=== PATIENT | male | born 1960 | race Caucasian/White ===

== ENCOUNTER 2022-12-11 08:50 | Outpatient (CLI) | payer OTHER, SELFPAY ==
[2022-12-11 13:01] LABS: Albumin* 4.5 g/dL (3.3-5.0); Chloride* 102 mmol/L (96-114)
[2022-12-11 13:02] LABS: Potassium* 4.3 mmol/L (3.6-5.1); Sodium* 139 mmol/L (135-149)
[2022-12-11 13:04] LABS: Carbon Dioxide* 31 mmol/L (20-32); Cholesterol* 151 mg/dL (90-199); Creatinine* 0.9 mg/dL (0.5-1.5); Estimated Glomerular Filt Rate 97 ml/min
[2022-12-11 13:05] LABS: Alanine Aminotransferase* 23 U/L (4-50); Alkaline Phosphatase* 49 U/L (40-150); Aspartate Amino Transferase* 27 U/L (12-35); Blood Urea Nitrogen* 16 mg/dL (7-30); Calcium* 9.5 mg/dL (8.4-10.6); Glucose* 91 mg/dL (60-115); HDL Cholesterol* 45 mg/dL (>=40); LDL Cholesterol Calculated 86 mg/dL (<100); Total Protein* 7.1 g/dL (6.0-8.3); Triglycerides* 100 mg/dL (40-149)
[2022-12-12 21:49] LABS: Prostate Specific Antigen Free 0.6 ng/mL; Prostate Specific Antigen%Free 38 %; Prostate Specific AntigenTotal 1.6 ng/mL (0.0-4.0)
== END 2022-12-11 08:51 | disposition home or self-care (01) ==
PROVIDERS: PCP Family Medicine; Visit Provider Family Medicine
DX: Z00.00 Encounter for general adult medical examination without abnormal findings (principal); E03.8 Other specified hypothyroidism; E78.5 Hyperlipidemia, unspecified; R00.2 Palpitations; R53.83 Other fatigue; N40.0 Benign prostatic hyperplasia without lower urinary tract symptoms
CPT/HCPCS: 80053; 80061; 84153; 84154; 84443

== ENCOUNTER 2022-12-26 07:15 | Outpatient (CLI) | payer OTHER, SELFPAY ==
--- NOTE | 2022-12-26 07:15 | CRLHL7_ITS ---
For Patients: As a result of the Century Cures Act, medical imaging exams and procedure reports are released immediately into your electronic medical record. You may view this report before your referring provider. If you have questions, please contact your health care provider. INDICATION: left wrist swelling. hx subclavian DVT 2015 COMPARISON: None. TECHNIQUE: Left upper extremity and neck venous ultrasound performed as well as ultrasound of right internal jugular vein including devries scale/2D, color Doppler, and spectral Doppler imaging including spectral waveform analysis. FINDINGS: The internal jugular, innominate, subclavian, axillary, basilic, cephalic, and brachial veins were patent and negative for thrombus. Hypoechoic noncompressible thrombus present within the distal left radial vein, corresponding to the area swelling. The ulnar vein is compressible. IMPRESSION: DVT within the distal left radial vein. Dictated by Felix Pittman MD @ 12/26/2022 10:19:11 AM (Electronically Signed)
== END 2022-12-26 07:16 | disposition home or self-care (01) ==
LOC: US 07:17
PROVIDERS: PCP Family Medicine; Visit Provider Family Medicine
DX: R22.32 Localized swelling, mass and lump, left upper limb (principal); I82.621 Acute embolism and thrombosis of deep veins of right upper extremity; I82.B12 Acute embolism and thrombosis of left subclavian vein
CPT/HCPCS: 93971

== ENCOUNTER 2024-02-18 08:27 | Outpatient (CLI) | payer OTHER, SELFPAY | END 2024-02-18 08:28 | disposition home or self-care (01) | PROVIDERS: PCP Family Medicine; Visit Provider Family Medicine | DX: E78.5 Hyperlipidemia, unspecified (principal); N40.0 Benign prostatic hyperplasia without lower urinary tract symptoms; Z12.5 Encounter for screening for malignant neoplasm of prostate; Z13.228 Encounter for screening for other metabolic disorders | CPT/HCPCS: 80053; 80061; G0103 ==

== ENCOUNTER 2024-06-10 07:50 | Outpatient (CLI) | payer OTHER, SELFPAY | END 2024-06-10 07:51 | disposition home or self-care (01) | LOC: FRMREF 07:51 | PROVIDERS: PCP Family Medicine; Visit Provider Family Medicine | DX: I82.409 Acute embolism and thrombosis of unspecified deep veins of unspecified lower extremity (principal); Z86.718 Personal history of other venous thrombosis and embolism | CPT/HCPCS: 81240; 81241; 85300; 85303; 85306; 85730; 86147 ==

== ENCOUNTER 2024-12-09 06:12 | Day surgery (SDC) | payer OTHER, SELFPAY ==
[2024-12-09] VITALS (12 sets, daily range): BP systolic 94–152; BP diastolic 64–104; PULSE 53–65; RESP 16; TEMP 36.5–36.9; O2SAT 94–100; BMI 25.3
--- OUTSIDE RECORDS SUMMARY | 2024-12-09 06:14 | XMS_ITS | Clinical Summary ---
Author Organization [id number] Address [place], [place] [address] Care Team Providers Care Speech Language Pathology Assistant Name Role Phone Kike Montilla MD Primary Care Provider [phone] Allergies Active Allergy Reactions Criticality Noted Date Comments Sulfa (Sulfonamide Antibiotics) 09/11 Medications ASPIRIN 81 MG TAB take 1 tablet (81mg) by oral route once daily Active IBUPROFEN 200 MG TAB take 2 tablet (400 mg) by oral route every 6 hours as needed with food Active PRILOSEC 20 MG CAP take 1 capsule (20 mg) by oral route once daily before a meal Active CRUTCH as directed 1 pair 0 10/02/2009 Active ibuprofen (ADVIL; MOTRIN) 600 mg tablet Take 1 tablet by mouth every 6 hours if needed for Pain. Maximum of 3200 mg in 24 hours. 30 tablet 0 02/26/2010 Active rosuvastatin (CRESTOR) 10 mg tablet Take 1 tablet by mouth at bedtime. 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 Gender Identity Not on file Sexual Orientation Not on file Obstetrics History Last Filed Vital Signs Vital Sign Reading Time Taken Comments Blood Pressure 130/78 02/26/2010 6:10 PM CDT Pulse 64 02/26/2010 6:10 PM CDT Temperature 36.2 C (97.2 F) 02/26/2010 4:00 PM CDT Respiratory Rate 16 02/26/2010 6:10 PM CDT Oxygen Saturation 98% 02/26/2010 6:10 PM CDT Inhaled Oxygen Concentration - - Weight 76.4 kg (168 lb 6.9 oz) 02/26/2010 12:00 PM CDT Height 182.9 cm (6') 02/26/2010 12:00 PM CDT Body Mass Index 22.84 02/26/2010 12:00 PM CDT Plan of Treatment Health Maintenance Due Date Last Done Comments Tdap 1972 Depression screening for age 12+ 1973 HIV for age 15-65 1976 BMI (ht and wt on same day) for age 18+ 1979 Hepatitis C screening for ag e 18-79 1979 Tetanus booster 1981 Colonoscopy through age 75 2006 Lipids for age 45-75 2006 Pneumococcal series for age 50+ (1 of 1 - PCV) 2011 Zoster (shingles) series for age 50+ (1 of 2) 2011 COVID-19 vaccine series (1 - 2023- season) 2024 Influenza for age 50-64 07/11/2024 RSV vaccine for adults or (1 - 1-dose 75+ series) 2036 Pneumococcal series for age 6-49 Aged Out No longer eligible based on patient's age to complete this topic Insurance [facility] Advance Directives * Full Code (Latest Code Status on File) Date Activated Date Inactivated Comments 02/26/2010 12:25 PM 02/26/2010 8:29 PM * Full Code Date Activated Date Inactivated Comments 10/02/2009 1:53 PM 10/02/2009 7:58 PM Care Teams Speech Language Pathology Assistant Relationship Specialty Start Date End Date Kike Montilla MD [address] [place] [address] PCP - General Family Practice 10/04/19
--- OUTSIDE RECORDS SUMMARY | 2024-12-09 06:15 | XMS_ITS | Continuity of Care Document ---
Author Organization [facility] Address [address] [address] [place] [address] Phone Care Team Providers Care Supervisor Incising Name Role Phone Unavailable Unavailable Unavailable Allergies, [...] Procedures Procedure Date Colonoscopy Flex; W/remov Les- 22 Colonoscopy W/Submucosal Injection Colonoscopy Flex; W/bx 1/mx Level Iv-surg Path Gross/micro Advance Directives Directive Yes / No Effective Date File Name No Information Encounters Encounter Description Practice Location Reason(s) For Visit Diagnoses Date Provider Providers Copied on Encounter [facility], [address] [address], [place], [id number], tel:[phone] Breezy [facility] No Information No Information Referring Provider: Jaquelin Mtz MD, [address] [facility] [address], [place], [address] . tel:[phone] [facility], [address] [address], [place], [id number], [place] tel:[phone] [facility] GI Symptoms or Concerns (chief complaint) Screening ColonoscopyPolyp of colon, unspecified part of colon, unspecified typeAVM (arteriovenous malformation) of colonBenign neoplasm of ascending colonBenign neoplasm of transverse colonEncounter for screening for malignant neoplasm of colonAngiodyspla sabiha of colon without hemorrhage 2 Bibi Harris. [address], [id number], [place]. tel:[phone] [facility], [address] [address], [place], [place], [id number], [place] tel:[phone] [facility] No Information 2 Loly Demarco. [address] [facility], [facility] [address], [place], [id number], [place]. tel:[phone] Family History Family Member Type Diagnosis Age [...] Registry Payers Payer name Insurance type Covered green party ID Authoriza timaribel(s) R CI [id number] Social History Type Description Quantity Date Captured [...]
--- OUTSIDE RECORDS SUMMARY | 2024-12-09 06:15 | XMS_ITS | Clinical Summary ---
[facility] Address [address] [place] [address] Care Team Providers Care Operations Chief Name Role Phone Clinician, Not Found MD Primary Care Provider Un available Source Comments You are receiving this document as you are listed as the primary care provider,follow-up provider, or the patient has been referred to you for consultation.This is in compliance with the Medicare and[facility] EHR Incentive Program,which states Providers who transition their patient to another setting of careor provider of care or refers their patient to another provider of care shouldprovide summary care record for each transition of care or referral. [facility] Allergies No known active allergies Medications Medication Sig Dispensed Refills Start Date End Date Status omeprazole (PRILOSEC-OTC) 20 MG tablet Take by mouth Every 24 hours. 03/19/2022 Active Social History Tobacco Use Types Packs/Day Years Used Date Smoking Tobacco: Never Assessed Sex and Gender Information Value Date Recorded Sex Assigned at Not on file Gender Identity Not on file Sexual Orientation Not on file Last Filed Vital Signs Vital Sign Reading Time Taken Comments Blood Pressure - - Pulse - - Temperature 36.6 C (97.8 F) 07/11/2022 11:55 AM CDT Respiratory Rate - - Oxygen Saturation - - Inhaled Oxygen Concentration - - Weight 81.6 kg (180 lb) 07/11/2022 11:55 AM CDT Height 182.9 cm (6') 07/11/2022 11:55 AM CDT Body Mass Index 24.41 07/11/2022 11:55 AM CDT Plan of Treatment Health Maintenance Due Date Last Done Comments Colon Cancer Screening Plan Due 1961 Hep C Screening (Preventive Services) 1961 PSA Screening Discussion 1961 HIV Screening (Preventive Services) 1977 Adult Preventive Visit 1979 Cholesterol 1996 COVID-19 Vaccine ( season) 2024 05/15/2021, 03/09/2021 Influenza (#1) 2024 10/25/2019, 09/11, 11/18/2017, Additional history exists DTaP/Tdap/Td (3 - Tdap) 01/07/2032 01/07/2022, 10/11 RSV (1 - 1-dose 75+ series) 2036 Zoster/Shingles Completed 03/19/2019, 12/27/2018 HepA Aged Out No longer eligi ble based on patient's age to complete this topic HepB Aged Out No longer eligi ble based on patient's age to complete this topic Hib Aged Out No longer eligi ble based on patient's age to complete this topic IPV (Polio) Aged Out No longer eligi ble based on patient's age to complete this topic MCV4 Aged Out No longer eligi ble based on patient's age to complete this topic Pneumococcal Aged Out No longer eligi ble based on patient's age to complete this topic Care Teams Operations Chief Relationship Specialty Start Date End Date Clinician, Not Found, [place] [address] PCP - General 07/11/22
--- OUTSIDE RECORDS SUMMARY | 2024-12-09 06:15 | XMS_ITS | Referral Summary ---
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 [address] [place] [address] PCP - General Family Practice 11/26/18 [facility] [address] [place] [address] Family Practice 11/26/18
--- OUTSIDE RECORDS SUMMARY | 2024-12-09 06:15 | XMS_ITS | Clinical Summary ---
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
[2024-12-09] MEDS: SODIUM CHLORIDE 0.9 % (FLUSH) 10 ML SYRINGE IVF (07:01)
[2024-12-09] MEDS: HEPARIN 5,000 UNIT/0.5 ML INJ 5000 UNIT SUBCUT (07:22)
--- NOTE | 2024-12-09 07:24 | SUR.PREOP ---
Double checked Heparin with ELENI Hernandez prior to her administration.
--- NOTE | 2024-12-09 07:29 | W.PM.H&PU ---
History & Physical Update History & Physical Update H&P Reviewed and patient assessed: The following changes are noted below H&P Updates: Since seeing patient in clinic, he has had hypercoagulable workup that did not reveal increase risk of bleeding. Given his history subclavian vein clot, will plan on prophylactic heparin perioperatively.
[2024-12-09] MEDS: 0.9 % SODIUM CHLORIDE 500 ML 500 ML 100 ML IV (07:30)
--- NOTE | 2024-12-09 07:32 | PM.GSPRC ---
Operative Note Date of procedure: 12/09/24 Pre-op diagnosis: Right inguinal hernia Post-op diagnosis: Same Type of Procedure: Laparoscopic repair right inguinal hernia Procedure Description: After discussing the risks and benefits of the procedure, the patient signed informed consent.? The operative site was marked and the patient was brought to the operating room and placed on the operating table in supine position.? Care was taken to pad the patient's pressure points.?? The patient was then intubated by anesthesia.?? The operative site was then prepped and draped in the usual sterile fashion.? A time-out was then performed. A curvilinear incision was made below the umbilicus. Dissection was carried down to subcutaneous tissue until the anterior rectus fascia was encountered. There was noted to be an umbilical hernia. This was containing preperitoneal fat. This was reduced and the fascial defect was palpable. The anterior rectus fascia was incised off the midline on the right. The rectus muscle fibers were then retracted exposing the posterior fascia. A port with a dissecting balloon was then introduced into the pre-preperitoneal space. This was inflated under direct vision. The balloon was deflated, removed, and a 10 mm working port was placed. The space was insufflated and a 10 mm 30-degree scope was then advanced into the space. Two 5 mm ports were placed in the midline under direct vision. Dissection began on the right side. August's ligament and the pubic bone were exposed medially. A direct hernia was noted. This was reduced. I carried my dissection laterally. There was peritoneum adherent to the spermatic cord structures, however did not appear to be an obvious indirect hernia. This was dissected free from the cord structures. No cord lipoma was noted through the internal ring. Dissection was carried out laterally. A piece of Bard 3DMax mesh for the appropriate side was placed into the abdomen. This was positioned with the marker pointed medially. A Tacker was used to attach the mesh medially at August's ligament, 1 tack anteriomedially beyond the indirect defect and 1 tack laterally with care to avoid the epigastric vessels and stay above the inguinal ligament. Once this was completed the sac was placed on top of the mesh and the preperitoneal space desufflated under direct vision to ensure the mesh laid flat. 15 mL of 0.5% Marcaine were instilled into the preperitoneal space through a port. The ports were removed. The fascia from the infraumbilical port was closed with 0 Vicryl and the fascial defect at the umbilical hernia site which measured approximately 1 cm was closed with 0 Nurolon suture in a [id number] fashion. The skin incisions were closed with absorbable subcuticular suture. Sterile dressings were then applied. The scrotum was examined to ensure that both testicles were down. Instrument sponge and needle counts were correct at the end of the case. The patient was then woken and transported to the recovery area in stable condition. ? The patient tolerated the procedure well. Findings: Direct right inguinal hernia Small preperitoneal fat containing umbilical hernia Anesthesia: BEATRIZ Surgeon: Ella Bauer MD Estimated blood loss (mL): 5 Condition: stable Disposition: PACU
[2024-12-09] MEDS: CEFAZOLIN 1 GM inj IVP (07:37)
[2024-12-09] MEDS: BUPIVACAINE 0.25% 30 ML INJECTION (08:30)
--- NOTE | 2024-12-09 08:43 | W.ANESCHARGE ---
Anesthesia Charges Start Date/Time Anesthesia Start Date: 12/09/24 Anesthesia Start Time: 07:28 Stop Date/Time Anesthesia Stop Date: 12/09/24 Anesthesia Stop Time: 08:42 Coding CPT Codes CPT Codes: ANESTH SURGERY OF ABDOMEN - 17409 ([id number]) P2 - PATIENT W/MILD SYST DISEASE, QK - MANGLE ROLLER 2-4 CNCRNT ANES PROC, QX - TRANSMITTER CHIEF SVC W/ MD MED DIRECTION
[2024-12-09] MEDS: HYDROCODONE-ACETAMIN 5-325 MG 1 TAB PO (09:57)
--- NOTE | 2024-12-09 10:06 | W.ANESCHARGE ---
Anesthesia Charges Start Date/Time Anesthesia Start Date: 12/09/24 Anesthesia Start Time: 07:28 Stop Date/Time Anesthesia Stop Date: 12/09/24 Anesthesia Stop Time: 08:42 Coding CPT Codes CPT Codes: ANESTH SURGERY OF ABDOMEN - 68978 ([id number]) QK - HOSPITALITY WORKERS 2-4 CNCRNT ANES PROC, QX - MEN'S LEATHER DRESS BELT MAKER SVC W/ MD MED DIRECTION, P2 - PATIENT W/MILD SYST DISEASE
--- NOTE | 2024-12-09 10:25 | SUR.PHASEII ---
Per Dr. Bauer, patient may resume his low dose Aspirin as prescribed and may take Ibuprofen post operatively as stated in instructions. No concerns related to preop Heparin. Patient verbalized understanding.
== END 2024-12-09 10:34 | disposition home or self-care (01) ==
PROVIDERS: PCP Family Medicine; Visit Provider Surgery
PROC: (CPT 49650; principal; 2024-12-09 07:30)
DX: K40.90 Unilateral inguinal hernia, without obstruction or gangrene, not specified as recurrent (principal); K42.9 Umbilical hernia without obstruction or gangrene
CPT/HCPCS: 49650; 49591; 00860; A9270; C1781; J0330; J0665; J0690; J1100; J1644; J2250; J2405; J2704; J2710; J3010; J7030

== ENCOUNTER 2025-02-28 07:47 | Outpatient (CLI) | payer OTHER, SELFPAY | END 2025-02-28 07:48 | disposition home or self-care (01) | LOC: NFLDREF 03-02 02:44 | PROVIDERS: PCP Family Medicine; Referring Provider Family Medicine; Visit Provider Family Medicine | DX: E78.2 Mixed hyperlipidemia (principal); N40.0 Benign prostatic hyperplasia without lower urinary tract symptoms; Z12.5 Encounter for screening for malignant neoplasm of prostate | CPT/HCPCS: 80053; 80061; G0103 ==

== ENCOUNTER 2025-04-18 06:39 | Outpatient (CLI) | payer OTHER, SELFPAY ==
--- NOTE | 2025-04-18 07:56 | P.ANES_ITS ---
Anesthesia Charges Start Date/Time Anesthesia Start Date: 04/18/25 Anesthesia Start Time: 07:20 Stop Date/Time Anesthesia Stop Date: 04/18/25 Anesthesia Stop Time: 07:48 Coding CPT Codes CPT Codes: CHARLES LWGiles INTST NDSC NOS - 30270 ([id number]) P2 - PATIENT W/MILD SYST DISEASE, QX - BEVELER SVC W/ MD MED DIRECTION, QK - REPAIR SPECIALIST 2-4 CNCRNT ANES PROC
--- NOTE | 2025-04-18 07:56 | W.ANESCHARGE ---
Anesthesia Charges Start Date/Time Anesthesia Start Date: 04/18/25 Anesthesia Start Time: 07:20 Stop Date/Time Anesthesia Stop Date: 04/18/25 Anesthesia Stop Time: 07:48 Coding CPT Codes CPT Codes: CHARLES LWGiles INTST NDSC NOS - 62213 ([id number]) P2 - PATIENT W/MILD SYST DISEASE, QX - AUTOMOTIVE ENGINEERING TECHNICIAN SVC W/ MD MED DIRECTION, QK - ACCOUNT TECHNICIAN 2-4 CNCRNT ANES PROC
--- NOTE | 2025-04-18 09:08 | P.ANES_ITS ---
Anesthesia Charges Start Date/Time Anesthesia Start Date: 04/18/25 Anesthesia Start Time: 07:20 Stop Date/Time Anesthesia Stop Date: 04/18/25 Anesthesia Stop Time: 07:48 Coding CPT Codes CPT Codes: CHARLES LWR INTST NDSC NOS - 30869 ([id number]) P2 - PATIENT W/MILD SYST DISEASE, QK - DIRECTOR OF RESTAURANT OPERATIONS 2-4 CNCRNT ANES PROC, QX - BRUSH POLISHER SVC W/ MD MED DIRECTION
--- NOTE | 2025-04-18 09:08 | W.ANESCHARGE ---
Anesthesia Charges Start Date/Time Anesthesia Start Date: 04/18/25 Anesthesia Start Time: 07:20 Stop Date/Time Anesthesia Stop Date: 04/18/25 Anesthesia Stop Time: 07:48 Coding CPT Codes CPT Codes: CHARLES LWR INTST NDSC NOS - 12220 ([id number]) P2 - PATIENT W/MILD SYST DISEASE, QK - TRANSFORMER INSPECTOR 2-4 CNCRNT ANES PROC, QX - MEDICAL DIRECTOR OCCUPATIONAL HEALTH SVC W/ MD MED DIRECTION
== END 2025-04-18 06:40 | disposition home or self-care (01) ==
LOC: OP CLINIC 06:39
PROVIDERS: PCP Family Medicine; Visit Provider Internal Medicine
DX: Z12.11 Encounter for screening for malignant neoplasm of colon (principal); Z86.0109 Personal history of other colon polyps; D12.5 Benign neoplasm of sigmoid colon; K57.30 Diverticulosis of large intestine without perforation or abscess without bleeding
CPT/HCPCS: 00811; 00812; 45380; J2704

== ENCOUNTER 2025-04-21 15:07 | Outpatient (CLI) | payer OTHER, SELFPAY | END 2025-04-21 15:08 | disposition home or self-care (01) | LOC: NFLDREF 15:10 | PROVIDERS: PCP Family Medicine; Visit Provider Family Medicine | DX: Z13.29 Encounter for screening for other suspected endocrine disorder (principal) | CPT/HCPCS: 84443 ==

== ENCOUNTER 2025-04-29 07:48 | Outpatient (CLI) | payer OTHER, SELFPAY ==
--- OUTSIDE RECORDS SUMMARY | 2022-03-19 03:01 | XMS_ITS | Continuity of Care Document ---
Author Organization [facility] Address [address] [address] [place] [address] Phone Care Team Providers Care Pickler Helper Name Role Phone Unavailable Unavailable Unavailable Allergies, Adverse Reactions, Alerts Substance Reaction Status Criticality Sulfa (Sulfonamide Antibiotics) Hematuria Active No Information Medications Medication Instructions Dosage Effective Dates (start - stop) Status Comments rosuvastatin 10 mg tablet take 1 tablet by oral route every day 10 MG - Active omeprazole 20 mg tablet,delayed release take 1 by Oral route every day 1 - Active Procedures Procedure Date Colonoscopy Flex; W/remov Les- Colonoscopy W/Submucosal Injection Colonoscopy Flex; W/bx 1/mx Level Iv-surg Path Gross/micro Advance Directives Directive Yes / No Effective Date File Name No Information Encounters Encounter Description Practice Location Reason(s) For Visit Diagnoses Date Provider Providers Copied on Encounter [facility], [address] [address], [place], [id number], tel:[phone] Breezy [facility] No Information No Information Referring Provider: Jaquelin Mtz MD, [address] [facility] [address], [place], [address] . tel:[phone] [facility], [address] [address], [place], [id number], [place] tel:[phone] [facility] GI Symptoms or Concerns (chief complaint) Screening ColonoscopyPolyp of colon, unspecified part of colon, unspecified typeAVM (arteriovenous malformation) of colonBenign neoplasm of ascending colonBenign neoplasm of transverse colonEncounter for screening for malignant neoplasm of colonAngiodyspla sabiha of colon without hemorrhage 2 Bibi Harris. [address], [id number], [place]. tel:[phone] [facility], [address] [address], [place], [place], [id number], [place] tel:[phone] [facility] No Information 2 Loly Demarco. [address] [facility] [address], [place], [id number], [place]. tel:[phone] Family History Family Member Type Diagnosis Age At Onset Mother Problem (finding) Cancer, gastric Immunizations Vaccine Date Status Comments tetanus toxoid, reduced diphtheria toxoid, and acellular pertussis vaccine, adsorbed administered Note: [facility] b i-directional interface ; Source: Other Registry SARS-COV-2 (COVID-19) vaccin e, mRNA, spike protein, LNP, preservative free, 30 mcg/0.3mL dose administered Note: [facility] bi-direct ional interface ; Source: Other Registry SARS-COV-2 (COVID-19) vaccin e, mRNA, spike protein, LNP, preservative free, 30 mcg/0.3mL dose administered Note: [facility] bi-direct ional interface ; Source: Other Registry Influenza administered Note: [facility] bi-d irectional interface ; Source: Other Registry zoster vaccine recombinant administered N ote: [facility] bi-directional interface ; Source: Other Registry zoster vaccine recombinant administered N ote: [facility] bi-directional interface ; Source: Other Registry Influenza administered Note: [facility] bi-d irectional interface ; Source: Other Registry Afluria Qd administered Note: [facility] bi-directional interface ; Source: Other Registry Influenza administered Note: [facility] bi-d irectional interface ; Source: Other Registry Influenza, seasonal, injecta ble, preservative free administered Note: [facility] bi-direct ional interface ; Source: Other Registry tetanus toxoid, reduced diphtheria toxoid, and acellular pertussis vaccine, adsorbed administered Note: [facility] b i-directional interface ; Source: Other Registry Payers Payer name Insurance type Covered libertarian ID Authoriza timaribel(s) R CI [id number] Social History Type Description Quantity Date Captured Comments Sex Male Smoking Status No Information Chief Complaint And Reason For Visit No Information Reason For Referral Reason For Referral No Information History Of Present Illness Encounter Date Complaint History Of Prese nt Illness GI Symptoms or Concerns Functional Status Date Functional Assessmen t No Information Instructions Date Instruction Additional Infor mation Colon Cancer Prevention Related to Polyp of colon, unspecified part of colon, unspecified type Colon Polyps Related to Polyp of colon, unspecified part of colon, unspecified type Assessments Type Assessment Date No Information Patient Care Teams Name Effective Dates (start - stop) Status Members No Information
--- OUTSIDE RECORDS SUMMARY | 2025-04-30 00:50 | XMS_ITS | Clinical Summary ---
Author Organization [facility] Address [address] [place] [address] Care Team Providers Care Prototype Assembler Electronics Name Role Phone Clinician, Not Found MD Primary Care Provider Un available Source Comments You are receiving this document as you are listed as the primary care provider,follow-up provider, or the patient has been referred to you for consultation.This is in compliance with the Medicare and[facility] EHR Incentive Program,which states Providers who transition their patient to another setting of careor provider of care or refers their patient to another provider of care shouldprovide summary care record for each transition of care or referral. [place] [facility] Allergies No known active allergies Medications omeprazole (PRILOSEC-OTC) 20 MG tablet Take by mouth Every 24 hours. 03/19/2022 Active Social History Tobacco Use Types Packs/Day Years Used Date Smoking Tobacco: Never Assessed Sex and Gender Information Value Date Recorded Sex Assigned at Not on file Legal Sex Male 7:01 AM CDT Gender Identity Not on file Sexual Orientation [...] 1977 Adult Preventive Visit 1979 Cholesterol 1996 Pneumococcal Vaccine 50+ Yrs (1 of 1 - PCV) 2011 COVID-19 Vaccine (3 - season) 2024 05/15/2021, 03/09/2021 Influenza Vaccine (Season Ended) 2025 10/25/2019, 09/30/2018, 11/18/2017, Additional history exists DTaP/Tdap/Td Vaccine (3 - Tdap) 01/07/2032 01/07/2022, 10/11/2011 RSV Vaccine (1 - 1-dose 75+ series) 2036 Zoster/Shingles Vaccine Completed 03/19/2019, 12/27 HepA Vaccine Aged Out No longer eligi ble based on patient's age to complete this topic HepB Vaccine Aged Out No longer eligi ble based on patient's age to complete this topic Hib Vaccine Aged Out No longer eligi ble based on patient's age to complete this topic IPV (Polio) Vaccine Aged Out No longe r eligible based on patient's age to complete this topic MCV4 Vaccine Aged Out No longer eligi ble based on patient's age to complete this topic Meningococcal B Vaccine Aged Out No l onger eligible based on patient's age to complete this topic Insurance [employer] Care Teams Prototype Assembler [employer] Relationship Specialty Start Date End Date Clinician, Not Found, [place] [address] PCP - General 07/11/22
--- OUTSIDE RECORDS SUMMARY | 2025-04-30 00:50 | XMS_ITS | Clinical Summary ---
Author Organization [facility] Address [address] [place] [address] Care Team Providers Care Client Service Executive Name Role Phone Kike Montilla MD Primary Care Provider [phone] Allergies Active Allergy Reactions Criticality Noted Date [...] Active Active Problems No known active problems Encounters Date Type Department Care Team Description 04/29/2025 8:00 AM CDT Ancillary Procedure 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 Gender Identity Not on file Sexual Orientation [...] C screening for ag e 18-79 1979 Pneumococcal series for age 50+ (1 of 2 - PCV) 1980 Tetanus booster 1981 Colonoscopy through age 75 2006 Lipids for age 45-75 2006 Zoster (shingles) series for age 50+ (1 of 2) 2011 COVID-19 vaccine series ( - 2023- season) 2024 Influenza Vaccine (Season Ended) 2025 RSV vaccine for adults or (1 - 1-dose 75+ series) 2036 Hepatitis B series for 19+ Aged Out N o longer eligible based on patient's age to complete this topic Procedures Procedure Name Priority Date/Time Associated Diagnosis Comments ECHO TTE COMPLETE WO CONTRAST Routine 04/29/2025 8:31 AM CDT Unspecified atrial fibrillation (HC) LAB TRACKING EVENT Routine 04/18/2025 7: 37 AM CDT PATH TISSUE EXAM Routine 04/18/2025 7:37 AM CDT from Last 3 Months Results * ECHO TTE COMPLETE WO CONTRAST (04/29/2025 8:31 AM CDT) AORTIC VALVE MEAN PG 2 mmHg EJECTION FRACTION 47 % LVEDD 4.2 cm EJECTION FRACTION 50 - 55% Anatomical Region Laterality Modality Ultrasound 04/29/2025 8:13 AM CDT Narrative 04/29/2025 9:05 AM CDT ECHOCARDIOGRAM DON MARQUEZ : 1960 65 years Study Date: 04/29/2025 8:13:23 AM Gender: M BP: 118/81 mmHg Height: 183.00 cm BSA: 1.98 m Weight: 76.00 kg Tech: NWA Referring MD: ARTURO HEMPHILL Site: [facility] Reading Location: Mobile-OP Patient Location: Outpatient. Procedure: 2D, Color Doppler and Spectral Doppler. Indication for study: Afib Cardiac Rhythm: Atrial fibrillation.Study quality: Good. Final Impressions: 1. Normal LV size, normal wall thickness, low normal global systolic function with an estimated EF of 50 - 55%. Difficult to accurately measure LVEF given a-fib with variable R-R intervals. 2. Right ventricular cavity size is normal, global systolic RV function is normal. 3. No significant valve disease detected. 4. Dilated sinus of Valsalva, diameter of 4.4 cm (upper limit of normal for age, sex, and BSA is 4.1 cm), Height Index 2.39 cm/m. Chamber Sizes and Function Normal left ventricular size, normal wall thickness, low normal global systolic function with an estimated EF of 50 - 55%. No resting regional wall motion abnormality visualized. Left atrial size is normal. Left atrial pressure is normal. Right ventricular cavity size is normal, global systolic RV function is normal. RV wall thickness is normal. The right atrium is mildly enlarged. Right atrial volume index is 30 ml/m . Right atrial area is 19 cm . The pulmonary artery is of normal size and origin. The sinus of Valsalva is dilated. The ascending aorta is normal sized. Valves, RV Pressures and Diastolic Function The aortic valve is normal in structure and trileaflet, no stenosis and trivial regurgitation. The mitral valve is normal in structure, mild mitral regurgitation. Indeterminate pattern of LV diastolic filling. The tricuspid valve is normal in structure, trace tricuspid regurgitation. Unable to assess right ventricular systolic pressure. The pulmonic valve is normal. No pulmonary regurgitation. Masses, Effusion, Shunts There is no pericardial effusion. The inferior vena cava is normal sized, respiratory size variation greater than 50%. No left to right shunting was detected by limited color flow Doppler interrogation of the interatrial septum. MEASUREMENTS AND CALCULATIONS 2-D Measurements and LV Function: LVID (d) 4.2 cm LV FS% (2D) 38 % LVID (s) 2.6 cm LVOT diameter 2.0 cm IVS (d) 1.0 cm HR 110 bpm LVPW (d) 1.2 cm LA Vol index 27 ml/m2 Ao Sinus 4.4 cm RA Vol index 30 ml/m2 Ao Sinus ULN 4.1 cm RA area 19 cm Asc Ao 4.0 cm RV Basal Diam 3.6 cm Asc Ao ULN 4.1 cm RV Mid Diam 2.1 cm LA 3.6 cm Diastology: Mitral Tissue Doppler E Peak 0.8 m/s e', Septum 0.11 m/s e', Lateral 0.15 m/s E/e' Average 6.38 Aortic Valve: Vmax 0.9 m/s GAVIN (V) 3.09 cm VTI 0.18 m GAVIN (I) 2.92 cm LVOT V max 0.9 m/s Max PG 3 mmHg LVOT VTI 0.17 m Mean PG 2 mmHg SV 52 ml Dim Index 0.93 SV index 26 ml/m CO 5.7 l/min CI 2.9 l/min/m Tricuspid Valve and estimated PA pressures: TAPSE 1.4 cm Pulmonic Valve: PV Vmax 0.9 m/s . This study was interpreted by an [facility] accredited facility. Final Procedure Note Kristian Bradshaw MD - 04/29/2025 ECHOCARDIOGRAM DON MARQUEZ : 1960 65 years Study Date: 04/29/2025 8:13:23 AM Gender: M BP: 118/81 mmHg Height: 183.00 cm BSA: 1.98 m Weight: 76.00 kg Tech: NWA Referring MD: ARTURO HEMPHILL Site: [facility] Reading Location: Mobile-OP Patient Location: Outpatient. Procedure: 2D, Color Doppler and Spectral Doppler. Indication for study: Afib Cardiac Rhythm: Atrial fibrillation.Study quality: Good. Final Impressions: 1. Normal LV size, normal wall thickness, low normal global systolicfunction with an estimated EF of 50 - 55%. Difficult to accurately measureLVEF given a-fib with variable R-R intervals. 2. Right ventricular cavity size is normal, global systolic RV functionis normal. 3. No significant valve disease detected. 4. Dilated sinus of Valsalva, diameter of 4.4 cm (upper limit of normalfor age, sex, and BSA is 4.1 cm), Height Index 2.39 cm/m. Chamber Sizes and Function Normal left ventricular size, normal wall thickness, low normal globalsystolic function with an estimated EF of 50 - 55%. No resting regionalwall motion abnormality visualized. Left atrial size is normal. Leftatrial pressure is normal. Right ventricular cavity size is normal, globalsystolic RV function is normal. RV wall thickness is normal. The rightatrium is mildly enlarged. Right atrial volume index is 30 ml/m . Rightatrial area is 19 cm . The pulmonary artery is of normal size and origin.The sinus of Valsalva is dilated. The ascending aorta is normal sized. Valves, RV Pressures and Diastolic Function The aortic valve is normal in structure and trileaflet, no stenosis andtrivial regurgitation. The mitral valve is normal in structure, mildmitral regurgitation. Indeterminate pattern of LV diastolic filling. Thetricuspid valve is normal in structure, trace tricuspid regurgitation.Unable to assess right ventricular systolic pressure. The pulmonic valveis normal. No pulmonary regurgitation. Masses, Effusion, Shunts There is no pericardial effusion. The inferior vena cava is normal sized,respiratory size variation greater than 50%. No left to right shunting wasdetected by limited color flow Doppler interrogation of the interatrialseptum. MEASUREMENTS AND CALCULATIONS 2-D Measurements and LV Function: LVID (d) 4.2 cm LV FS% (2D) 38 % LVID (s) 2.6 cm LVOT diameter 2.0 cm IVS (d) 1.0 cm HR 110 bpm LVPW (d) 1.2 cm LA Vol index 27 ml/m2 Ao Sinus 4.4 cm RA Vol index 30 ml/m2 Ao Sinus ULN 4.1 cm RA area 19 cm Asc Ao 4.0 cm RV Basal Diam 3.6 cm Asc Ao ULN 4.1 cm RV Mid Diam 2.1 cm LA 3.6 cm Diastology: Mitral Tissue Doppler E Peak 0.8 m/s e', Septum 0.11 m/s e', Lateral 0.15 m/s E/e' Average 6.38 Aortic Valve: Vmax 0.9 m/s GAVIN (V) 3.09 cm VTI 0.18 m GAVIN (I) 2.92 cm LVOT V max 0.9 m/s Max PG 3 mmHg LVOT VTI 0.17 m Mean PG 2 mmHg SV 52 ml Dim Index 0.93 SV index 26 ml/m CO 5.7 l/min CI 2.9 l/min/m Tricuspid Valve and estimated PA pressures: TAPSE 1.4 cm Pulmonic Valve: PV Vmax 0.9 m/s . This study was interpreted by an [facility] accredited facility. Final us Arturo Hemphill MD ECHO ORD Final Result * LAB TRACKING EVENT (04/18/2025 7:37 AM CDT) Other (Other) Client Collect / Unknown 04/18/2025 7:37 AM CDT 04/19/2025 8:19 AM CDT us Pavan Griffiths MD LAB BILL ONLY Final Result [facility] [address] [place] [address], * PATH TISSUE EXAM (04/18/2025 7:37 AM CDT) Case Report Pathology Report Case: [id number] Authorizing Provider: Pavan Griffiths MD Collected: 04/18/2025 0737 Ordering Location: [facility] Received: 04/19/2025 1141 Pathologist: Kem Flores MD Specimen: Colon Polyp 04/21/2025 10:19 AM CDT [facility] Final Diagnosis A) COLON, SIGMOID, POLYPECTOMY: 1. Tubular adenoma 2. Negative for high grade dysplasia 3. Per the colonoscopy report: a. Polyp size: 3 mm b. Resection: Complete c. Retrieval: Complete 04/21/2025 10:19 AM CDT [facility] at 1019 CDT Clinical Information High risk colon cancer surveillance. 04/21/2025 10:19 AM CDT [facility] Gross Description A) Received in formalin is a brooks mucosal fragment measuring 4 mm in greatest dimension, which is entirely submitted in one cassette. It is labeled with the patient's name and designated sigmoid colon polyp. Denia Dunne 04/19/2025 3:30 PM 04/21/2025 10:19 AM CDT [facility] Microscopic Description The final diagnosis is based on microscopic examination of appropriate sections of all specimens. 04/21/2025 10:19 AM CDT [facility] Additional Information Interpreted at [facility] - [address] [place] [address], [place] [address] 04/21/2025 10:19 AM CDT [facility] Other (Colon Polyp) 04/18/2025 7:37 AM CDT 04/19/2025 11:41 AM CDT us Pavan Griffiths MD PATHOLOGY/CYTOLOGY Final Res ult [facility] [address] [place] [address], from Last 3 Months Insurance [facility] Advance Directives * Full Code (Latest Code Status on File) Date Activated Date Inactivated Comments 02/26/2010 12:25 PM 02/26/2010 8:29 PM * Full Code Date Activated Date Inactivated Comments 10/02/2009 1:53 PM 10/02/2009 7:58 PM Care Teams Client Service Executive Relationship Specialty Start Date End Date Kike Montilla MD [address] [place] [address] PCP - General Family Practice 10/04/19
--- OUTSIDE RECORDS SUMMARY | 2025-04-30 00:50 | XMS_ITS | Clinical Summary ---
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
== END 2025-04-29 07:49 | disposition home or self-care (01) ==
LOC: RAD 07:48
PROVIDERS: PCP Family Medicine; Visit Provider Family Medicine
DX: I48.91 Unspecified atrial fibrillation (principal)
CPT/HCPCS: 93306